=== PATIENT | female | born 1995 | race Caucasian/White ===

== ENCOUNTER 2017-06-05 23:44 | Emergency (ER) | payer OTHER ==
[~2017-06-05] VITALS: Ht 160 cm; Wt 59.1 kg
[~2017-06-05 23:44] MED LIST: PRENATAL VIT
[2017-06-06 00:10] VITALS: BP 109/69
== END 2017-06-06 01:45 | disposition left against medical advice (07) ==
LOC: EMS 23:45
DX: R51 Headache (principal); Z53.21 Procedure and treatment not carried out due to patient leaving prior to being seen by health care provider